=== PATIENT | female | born 1960 | race Caucasian/White ===

== ENCOUNTER 2017-05-05 12:15 | Emergency (ER) | payer OTHER ==
[~2017-05-05] VITALS: Ht 167.6 cm; Wt 100.0 kg
[~2017-05-05 12:15] MED LIST: ASPI81TA3 PO; BENA20TA48 PO; GABA300C16 PO; GLIP5TAB13 PO; IBUP-1542 PO; LANT3I SC; METF1000 PO; NIT4 SL; PROP40TA4 PO
[2017-05-05 12:18] VITALS: Ht 167.6 cm; Wt 100.0 kg
[2017-05-05] MEDS ORDERED: IBUPROFEN 600 MG TAB PO ONE (13:00)
--- NOTE | 2017-05-05 13:51 | RADRPT ---
PROCEDURE: XR Knee. CLINICAL INDICATION: Pain TECHNIQUE: AP, lateral and oblique view of the right knee were obtained. The images reviewed on a PACS workstation. COMPARISON: None. FINDINGS: Three views of the right knee demonstrate no displaced fracture. No gross malalignment is seen. Th ere is no significant degenerate change. No patellofemoral disease is identified. No knee joint effu lobo is seen.. The bones normally mineralized. The soft tissues are unremarkable. IMPRESSION: No acute fracture dislocation RPTAT: HH .Mo Morgan MD, MD Date Time Electronically viewed and signed by .Mo Morgan MD, on 05/05/2017 13:50 .W/
--- NOTE | 2017-05-05 14:15 | RADRPT ---
PROCEDURE: XR Cervical Spine 3 Views. CLINICAL INDICATION: Neck pain and trauma. TECHNIQUE: AP, lateral and odontoid views of the cervical spine were performed. The images were re viewed on a PACS workstation. COMPARISON: None. FINDINGS: Cervical spine demonstrates a normal lordosis. No fractures or destructive bony lesions are observe d. Mild intervertebral disc space narrowing is identified at C5-6. Mild anterior osteophytosis is id entified from C4-C7. Facet joints are unremarkable. No prevertebral soft tissue thickening is obse rved. IMPRESSION: No visualized traumatic injury. Mild degenerative disc disease from C4-C7. If there is high clinical suspicion for traumatic injury, further evaluation with CT should be consi dered. RPTAT: AA .Siddharth Sexton MD, MD Date Time Electronically viewed and signed by .Siddharth Sexton MD, MD on 05/05/2017 14:15 .P/
[2017-05-05] MEDS ORDERED: IBUP-1542 PO (14:41)
[2017-05-05] MEDS ORDERED: TRAM50TA2 PO (14:41)
--- NOTE | 2017-05-05 14:48 | ERD ---
ER Documentation Chief Complaint Date/Time DATE: 05/05/17 TIME: 14:44 Chief Complaint BIB RA FROM [facility] FOR RT KNEE PAIN S/P SLIP AND FALL , NO K/O HPI This 56-year-old female slipped on some ice and $0.99 toward complains of right knee pain after she fell on it directly. She also has some mild neck pain. She denies any head injury or loss consciousness, vomiting weakness, bleeding or lacerations. ROS All systems reviewed and are negative except as per history of present illness. Medications Home Meds Active Scripts Tramadol HCl (Tramadol HCl) 50 Mg Tablet, 50 MG PO Q4 Y for PAIN, #15 TAB Prov:CARLOS ALBERTO BLEDSOE MD 05/05/17 Ibuprofen* (Motrin*) 600 Mg Tab, 600 MG PO Q6, #30 TAB Prov:CARLOS ALBERTO BLEDSOE MD 05/05/17 Ibuprofen* (Motrin*) 600 Mg Tab, 600 MG PO Q6, #30 TAB Prov:MAIDA SANTANA 01/06/16 Reported Medications Ibuprofen* (Ibuprofen*) 600 Mg Tablet, 600 MG PO TID, TAB 06/05/14 Insulin Glargine* (Lantus*) 100 Unit/Ml Soln, 8 UNIT SC QHS, EA 02/17/14 Nitroglycerin* (Nitrostat*) 0.4 Mg Tab.subl, 0.4 MG SL Q5MIN Y for CHEST PAIN, BOTTLE 02/17/14 Glipizide* (Glipizide*) 5 Mg Tablet, 5 MG PO BID, TAB 02/17/14 Gabapentin* (Gabapentin*) 300 Mg Capsule, 300 MG PO DAILY, CAP 02/17/14 Propranolol Hcl* (Propranolol Hcl*) 40 Mg Tablet, 40 MG PO BID, TAB 02/17/14 Metformin Hcl* (Metformin Hcl*) 1,000 Mg Tablet, 1000 MG PO BID, TAB 02/17/14 Aspirin* (Aspirin* Chew) 81 Mg Tab.chew, 81 MG PO DAILY, TAB.CHEW 02/17/14 Benazepril Hcl* (Benazepril Hcl*) 20 Mg Tablet, 20 MG PO DAILY, TAB 02/17/14 Allergies Allergies: Coded Allergies: No Known Allergy (Verified , 09/11/10) PMhx/Soc History of Surgery: Yes (HYSTERECTOMY 10 YEARS AGO, X2) Anesthesia Reaction: No Hx Neurological Disorder: No Hx Respiratory Disorders: No Hx Cardiac Disorders: Yes (HTN) Hx Psychiatric Problems: No Hx Miscellaneous Medical Probl: Yes (DM) Hx Alcohol Use: No Hx Substance Use: No Hx Tobacco Use: No Physical Exam Vitals Vital Signs Date Time Temp Pulse Resp B/P Pulse Ox O2 Delivery O2 Flow Rate FiO2 05/05/17 12:18 98.5 71 18 178/95 97 Physical Exam Const: [] Alert, [id number]. Head: Atraumatic Eyes: Normal Conjunctiva ENT: Normal External Ears, Nose and Mouth. Neck: Full range of motion..~ No meningismus. Minimal cervical paraspinous muscle tenderness. Resp: Clear to auscultation bilaterally Cardio: Regular rate and rhythm, no murmurs Abd: Soft, non tender, non distended. Normal bowel sounds Skin: No petechiae or rashes Back: No midline or flank tenderness Ext: No cyanosis, or edema or tenderness of the right patella without significant swelling, no appreciable erythema, bleeding or lacerations. No calf swelling or Homans sign. Neur: Awake and alert Psych: Normal Mood and Affect Results 24 hrs Current Medications Medications (Trade) Dose Ordered Sig/[place] Route PRN Reason Start Time Stop Time Status Last Admin Dose Admin Ibuprofen (Motrin) 600 mg ONCE ONCE PO 05/05/17 13:00 05/05/17 13:01 DC 05/05/17 13:02 Procedures/MDM X-ray right knee 4V Interpreted by me: Bones: [No fracture] Joints: [No dislocation] Foreign body: [None] impression-normal right knee x-ray X-ray C spine 3V Interpreted by me: Bones: [No fracture] Joints: [No dislocation] Foreign body: [None] impression-no fracture dislocation and C-spine x- ray. Mild degenerative changes. Signs and symptoms of cervical strain and right knee contusion without evidence of fracture, dislocation, head injury, deficits, additional complications due to her fall. She will treated with ibuprofen and tramadol, primary care follow- up and return precautions. The patient was stable with no new complaints during the ER course. Clinically, there is no current evidence to suggest meningitis, sepsis, acute abdomen, pneumonia, acute coronary syndrome, pulmonary embolism, or any other emergent condition appearing to require further evaluation or hospitalization. The patient should certainly return for any new or worsening symptoms per the aftercare instructions. They should otherwise follow-up with her primary care doctor for reevaluation this week. Departure Diagnosis: Primary Impression: Knee contusion Encounter type: initial encounter Laterality: right Qualified Code: S80.01XA - Contusion of right knee, initial encounter Additional Impression: Fall Encounter type: initial encounter Qualified Code: W19.XXXA - Fall, initial encounter Condition: Stable Patient Instructions: Contusion, Lower Extremity, Fall, Mechanical Additional Instructions: X-rays normal. Examines normal hoy. Cheque otro vez con edwards doctor primario en el proximo garcia or regresa para mas o nueva simptomas. CARLOS ALBERTO BLEDSOE MD May 05, 2017 14:47
[2017-05-05 15:14] VITALS: BP 158/84; PULSE 76; RESP 18; TEMP 97.7
== END 2017-05-05 15:14 | disposition home or self-care (01) ==
LOC: FTE 12:15
DX: S80.01XA Contusion of right knee, initial encounter (principal); I10 Essential (primary) hypertension; E11.9 Type 2 diabetes mellitus without complications; W18.39XA Other fall on same level, initial encounter; Y92.9 Unspecified place or not applicable; Z79.4 Long term (current) use of insulin; Z79.82 Long term (current) use of aspirin
CPT/HCPCS: 29505; 72040; 73564; Z7502; Z7610